=== PATIENT | male | born 1955 | race Caucasian/White ===

== ENCOUNTER 2018-10-01 06:26 | Day surgery (SDC) ==
[2018-10-01] MEDS: BETADINE OPTH PREP OP PRN ×2 (06:40→07:20)
[2018-10-01] MEDS: TETRACAINE 0.5% UNIT-DOSE OP PRN ×3 (06:40→07:41)
[2018-10-01] MEDS: CYCLOGYL 2% OPTH OP PRN ×3 (06:41→06:51)
[2018-10-01] MEDS ORDERED: BRIMONIDINE TARTRATE 0.2% OPTH SOL OP PRN (06:49)
[2018-10-01] MEDS ORDERED: ZOFRAN 4 MG/2 ML IVP ONE (06:49)
[2018-10-01] MEDS ORDERED: LIDOCAINE 1% 20 ML MDV ID STA (06:49)
[2018-10-01 06:58] VITALS: TEMP 97
[2018-10-01] MEDS: LIDOCAINE 1%/PHENYLEPHRINE 1.5% BSS (SURGERY) INTRAOCULA ONE ×2 (07:32→07:41)
[2018-10-01] MEDS: DEX-MOXI-KETOR OPTH INJ 1/0.5/0.4 MG/ML IO ONE ×2 (07:32→07:41)
[2018-10-01] MEDS: BSS WITH EPINEPHRINE OP ONE ×2 (07:32→07:41)
[2018-10-01] MEDS ORDERED: SUBLIMAZE ONE (07:35)
[2018-10-01] MEDS ORDERED: VERSED ONE (07:35)
[2018-10-01] MEDS ORDERED: ZOFRAN 4 MG/2 ML ONE (07:35)
[2018-10-01 08:18] VITALS: BP 121/82
== END 2018-10-01 08:30 | disposition home or self-care (01) ==
LOC: SURG 06:26
PROVIDERS: ATTEND Ophthalmology
DX: H25.12 Age-related nuclear cataract, left eye (principal)

== ENCOUNTER 2018-10-15 06:05 | Day surgery (SDC) ==
[2018-10-15] MEDS: BETADINE OPTH PREP OP PRN ×2 (06:50→08:05)
[2018-10-15] MEDS: TETRACAINE 0.5% UNIT-DOSE OP PRN ×3 (06:50→08:12)
[2018-10-15] MEDS: CYCLOGYL 2% OPTH OP PRN ×3 (06:51→07:01)
[2018-10-15] MEDS ORDERED: BSS WITH EPINEPHRINE OP ONE (07:01)
[2018-10-15] MEDS ORDERED: ZOFRAN 4 MG/2 ML IVP ONE (07:01)
[2018-10-15] MEDS ORDERED: LIDOCAINE 1% 20 ML MDV ID STA (07:01)
[2018-10-15] MEDS ORDERED: BRIMONIDINE TARTRATE 0.2% OPTH SOL OP PRN (07:01)
[2018-10-15] MEDS ORDERED: LIDOCAINE 1%/PHENYLEPHRINE 1.5% BSS (SURGERY) INTRAOCULA ONE (07:01)
[2018-10-15] MEDS ORDERED: DEX-MOXI-KETOR OPTH INJ 1/0.5/0.4 MG/ML IO ONE (07:01)
[2018-10-15 07:11] VITALS: TEMP 98.1
[2018-10-15] MEDS ORDERED: SUBLIMAZE ONE (08:03)
[2018-10-15] MEDS ORDERED: ZOFRAN 4 MG/2 ML ONE (08:03)
[2018-10-15] MEDS ORDERED: VERSED ONE (08:03)
[2018-10-15 10:28] VITALS: BP 132/56
== END 2018-10-15 08:50 | disposition home or self-care (01) ==
LOC: SURG 06:05
PROVIDERS: ATTEND Ophthalmology
DX: H25.11 Age-related nuclear cataract, right eye (principal)